=== PATIENT | female | born 1950 | race Caucasian/White ===

== ENCOUNTER → 2018-11-27 13:18 | Outpatient (CLI) | payer MEDICARE ==
[2012-06-20 06:36] VITALS: BMI 26.2
--- NOTE | ~2018-11-27 | HEMODYNAMI ---
PATIENT:ZORA SMART MEDICAL RECORD: [id number] : 52 LOCATION:[facility] ADMISSION DATE: 11/27/18 Generatedon:11/27/201814:21 Patient name: ZORA SMART Patient #: [id number] SSN: : 1950 Date of study: 11/27/2018 Page: Of Hemodynamic Procedure Report Patient Data Patient Demographics First Name: ZORA Gender: Female Last Name: BERRY : 1950 Middle Initial: MABEL Age: 68 year(s) Patient #: [id number] Race: Unknown Additional ID: [id number] Contact details Address: [address] [place] [address] State: [place] City: [facility] Zip code: [address] Past Medical History Allergies Allergen Reaction Date Comments Reported Sulfa drugs 11/27/2018 Admission Admission Data Admission Date: 11/27/2018 Admission Time: 13:18 Procedure Procedure Types Cath Procedure Peripheral Cath Diagnostic Procedure Installation Supervisor Peripheral Procedures Miscellaneous Aspiration/Injection (Joint) Procedure Description Procedure Date Procedure Date: 11/27/2018 Procedure Start Time: 14:02 Procedure End Time: 14:21 Procedure Staff Name Function Navin Bailey MD Performing Physician Fadia Morillo RT Programmer Analyst Consultant Procedure Data Cath Procedure Fluoroscopy Diagnostic fluoroscopy Total fluoroscopy Time: 0.5 time: 0.5 min min Diagnostic fluoroscopy Total fluoroscopy dose: 34 dose: 34 mGy mGy Contrast Material Contrast Material Type Amount (ml) Isovue 300 5 Hemodynamics Rest Pre Cath Intra NCS Post Cath Procedure Log Time Note 14:00:41 Time tracking: Regular hours (M-F 7:00 - 5:00) 14:01:04 Patient received from Other to IR Alert and oriented. Tansferred to table in Supine position. 14:01:07 - 14:01:38 Patient allergic to Sulfa drugs 14:01:47 SAFE-T PLUS MYELOGRAM TRAY opened to sterile field. 14:01:53 - 14:02:03 Left Hip was prepped with chlora-prep and draped in sterile fashion. 14:02:07 Physician arrived 14:02:16 --------ALL STOP TIME OUT------ 14:02:17 Final Timeout: patient, procedure, and site verified with staff and physician. All members of the team are in agreement. 14:02:25 Procedure started. 14:02:25 Full Disclosure recording started 14:02:33 Local anesthetic to Left Hip with Lidocaine 1% by Navin Bailey MD.INITIAL ACCESS ONLY 14:18:41 hip injected 14:18:52 Procedure ended.(Physican Out) 14:19:11 Fluoroscopy time 00.50 minutes. 14:19:15 Fluoroscopy dose: 34 mGy 14:19:15 Flurop Dose total: 34 14:19:23 Contrast amount:Isovue 300 5ml. 14:21:35 Procedure ended. 14:21:35 Full Disclosure recording stopped Device Usage Item Name Manufacture Quantity Catalog Hospital Part Current Minimal Lot# / Number Charge Number Stock Stock Serial# Code SAFE-T [employer] 1 [id number] PLUS MYELOGRAM TRAY Signature Audit [place] Stage Time Signature Unsigned Intra-Procedure 11/27/2018 Fadia Morillo 2:21:50 PM RT(R) [facility] [address] [place] [address]
== END | disposition home or self-care (01) ==
LOC: D.RAD 13:18
PROVIDERS: ATTEND Nurse Practitioner Family
DX: M13.852 Other specified arthritis, left hip (principal)

== ENCOUNTER → 2019-01-22 11:50 | Outpatient (CLI) | payer MEDICARE ==
[2012-06-20 06:36] VITALS: BMI 26.2
== END | disposition home or self-care (01) ==
LOC: D.US 11:50
PROVIDERS: ATTEND Family Medicine
DX: R60.0 Localized edema (principal)